=== PATIENT | female | born 1970 | race Two or more races ===

== ENCOUNTER → 2019-12-25 | Emergency (ER) | payer SELFPAY ==
[~2019-12-25] VITALS: Ht 162.6 cm; Wt 93.0 kg
[2019-12-25 17:22] VITALS: BP 140/83
== END | disposition left against medical advice (07) ==
LOC: ER 17:09
DX: R05 Cough (principal); R51 Headache; Z53.21 Procedure and treatment not carried out due to patient leaving prior to being seen by health care provider

== ENCOUNTER 2022-02-12 08:34 | Emergency (ER) | payer SELFPAY ==
[~2022-02-12] VITALS: Ht 162.6 cm; Wt 97.1 kg
[2022-02-12 09:39] VITALS: BP 133/77
== END 2022-02-12 11:46 | disposition home or self-care (01) ==
LOC: ER 08:34
DX: H11.31 Conjunctival hemorrhage, right eye (principal)